=== PATIENT | female | born 1995 | race African-American/Black ===

== ENCOUNTER 2024-03-13 02:12 | Emergency (ER) | payer SELFPAY ==
[2024-03-13 02:21] VITALS: TEMP 98; BMI 28.1
[2024-03-13] MEDS ORDERED: ALBUTEROL SO4 2.5/IPRATROPIUM 0.5 INH SOL 3 ML VIAL.NEB. NEB ONE (02:24)
[2024-03-13] MEDS: ALBUTEROL SO4 2.5/IPRATROPIUM 0.5 INH SOL 3 ML VIAL.NEB. NEB SCH (02:37)
[2024-03-13] MEDS: DEXAMETHASONE SOD PHOSPHATE 10 MG/1 ML VIAL PO ONE (02:37)
[2024-03-13] MEDS ORDERED: DEXAMETHASONE SOD PHOSPHATE 10 MG/1 ML VIAL ONE (02:39)
[2024-03-13] MEDS: DEXAMETHASONE SOD PHOSPHATE 10 MG/1 ML VIAL IVPUSH ONE (02:42)
[2024-03-13 02:51] LABS: BASO % 0.1 % (0-2.0); EOS % 1.2 % (0-4.5); HEMATOCRIT 34.6 % (32.4-45.2); HEMOGLOBIN 11.7 GM/dL (10.7-15.3); LYMPH % 26.1 % (8-40); MCH 30.8 pg (25.7-33.7); MCHC 33.9 g/dl (32.0-36.0); MEAN CELL VOLUME 90.9 fl (80-96); MEAN PLT VOLUME 8.8 fl (7.5-11.1); MONO % 6.6 % (3.8-10.2); PLATELET COUNT 225 10^3/uL (134-434); RBC 3.81 M/mm3 (3.60-5.2); RDW 12.9 % (11.6-15.6); WHITE BLOOD COUNT 13.7 K/mm3 (4.0-10.0)
[2024-03-13 03:12] LABS: POTASSIUM 3.5 mmol/L (3.5-5.1)
[2024-03-13 03:14] LABS: CALCIUM 9.1 mg/dL (8.5-10.1)
[2024-03-13 03:15] LABS: ALBUMIN 3.1 g/dl (3.4-5.0); BLOOD UREA NITROGEN 13.9 mg/dL (7-18)
[2024-03-13 03:18] LABS: CREATININE 0.8 mg/dL (0.55-1.3)
[2024-03-13 03:19] LABS: BILIRUBIN,TOTAL 0.3 mg/dL (0.2-1)
[2024-03-13 03:20] LABS: TOT PROT 6.8 g/dl (6.4-8.2)
[2024-03-13 05:25] VITALS: BP 113/70; PULSE 87; RESP 16
== END 2024-03-13 06:15 | disposition home or self-care (01) ==
LOC: JER 02:12
PROC: 3E030GC Introduction of Other Therapeutic Substance into Peripheral Vein, Open Approach (ICD-10-PCS; principal; 2024-03-13)
PROC: 3E0F7GC Introduction of Other Therapeutic Substance into Respiratory Tract, Via Natural or Artificial Opening (ICD-10-PCS; 2024-03-13)
DX: R06.02 Shortness of breath (principal); R00.0 Tachycardia, unspecified; Z20.822 Contact with and (suspected) exposure to COVID-19
CPT/HCPCS: 0241U-QW; 36415; 71046-TC-FY; 71275-TC; 80053; 84703; 85025; 85379; 93005; 93010; 99285-25; J1100